=== PATIENT | male | born 1965 | race Caucasian/White ===

== ENCOUNTER 2023-03-07 08:12 | Outpatient (CLI) | payer OTHER, SELFPAY | END 2023-03-07 08:13 | disposition home or self-care (01) | PROVIDERS: PCP Family Medicine; Visit Provider Family Medicine | DX: E78.5 Hyperlipidemia, unspecified (principal); E55.9 Vitamin D deficiency, unspecified; E66.9 Obesity, unspecified; Z12.5 Encounter for screening for malignant neoplasm of prostate | CPT/HCPCS: 80061; 84153 ==

== ENCOUNTER 2024-08-08 10:01 | Outpatient (CLI) | payer OTHER, SELFPAY ==
--- OUTSIDE RECORDS SUMMARY | 2024-08-08 10:05 | XMS_ITS | Clinical Summary ---
Author Organization [facility] Address [address] [address] Phone Care Team Providers Care Soil Science Technical Officer Name Role Phone Unavailable Primary Care Provider Unavailabl e Allergies No known active allergies Medications Medication Sig Dispensed Refills Start Date End Date Status atorvaSTATin (Lipitor) 10 MG tablet Take 10 mg by mouth one time a day. Active FENOFIBRATE OR Take by mouth. Active ASPIRIN 81 OR Take by mouth. Active Immunizations Name Administration Dates Next Due Rabies IM Fibroblast Culture (Rabavert) 04/18/20 23,04/15/2023 Social History Tobacco Use Types Packs/Day Years Used Date Smoking Tobacco: Never Assessed [facility] Custom IPV Answer Date Recorded Do you feel UNSAFE in any of your personal relationships with your family members or any other acquaintances? No 2022 Sex and Gender Information Value Date Recorded Sex Assigned at Not on file Gender Identity Not on file Sexual Orientation Not on file Job Start Date Occupation Industry Not on file Not on file Not on file Last Filed Vital Signs Vital Sign Reading Time Taken Comments Blood Pressure 157/97 04/18/2023 9:46 AM CDT Pulse 74 04/18/2023 9:42 AM CDT Temperature 36.9 ??C (98.4 ??F) 04/18/2023 9:42 AM CD T Respiratory Rate 18 04/18/2023 9:42 AM CDT Oxygen Saturation 98% 04/18/2023 9:42 AM CDT Inhaled Oxygen Concentration - - Weight 90.7 kg (200 lb) 04/18/2023 9:42 AM CDT Height 180.3 cm (5' 11) 04/18/2023 9:42 AM CDT Body Mass Index 27.89 04/18/2023 9:42 AM CDT Plan of Treatment Not on file Aram Mojica Personal/Family Self 1965 [address] [place] [address]
== END 2024-08-08 10:02 | disposition home or self-care (01) ==
PROVIDERS: PCP Family Medicine; Visit Provider Family Medicine
DX: E78.5 Hyperlipidemia, unspecified (principal); E55.9 Vitamin D deficiency, unspecified; Z12.5 Encounter for screening for malignant neoplasm of prostate
CPT/HCPCS: 80048; 80061; G0103

== ENCOUNTER 2025-02-12 15:33 | Outpatient (CLI) | payer OTHER, SELFPAY | END 2025-02-12 15:34 | disposition home or self-care (01) | LOC: NFLDREF 02-13 17:09 | PROVIDERS: PCP Family Medicine; Referring Provider Family Medicine; Visit Provider Family Medicine | DX: R10.32 Left lower quadrant pain (principal); K57.92 Diverticulitis of intestine, part unspecified, without perforation or abscess without bleeding | CPT/HCPCS: 87086 ==

== ENCOUNTER 2025-06-06 09:29 | Outpatient (CLI) | payer OTHER, SELFPAY ==
--- NOTE | 2025-06-06 11:07 | P.ANES_ITS ---
Anesthesia Charges Start Date/Time Anesthesia Start Date: 06/06/25 Anesthesia Start Time: 10:35 Stop Date/Time Anesthesia Stop Date: 06/06/25 Anesthesia Stop Time: 11:01 Coding CPT Codes CPT Codes: JESICA LWR INTST NDSC NOS - [id number] ([id number]) P2 - PATIENT W/MILD SYST DISEASE, QK - NCR OPERATOR 2-4 CNCRNT ANES PROC, QX - INFORMATION TECHNOLOGY ARCHITECT SVC W/ MD MED DIRECTION
--- NOTE | 2025-06-06 11:07 | W.ANESCHARGE ---
Anesthesia Charges Start Date/Time Anesthesia Start Date: 06/06/25 Anesthesia Start Time: 10:35 Stop Date/Time Anesthesia Stop Date: 06/06/25 Anesthesia Stop Time: 11:01 Coding CPT Codes CPT Codes: JESICA LWR INTST NDSC NOS - [id number] ([id number]) P2 - PATIENT W/MILD SYST DISEASE, QK - AXMINSTER WEAVER 2-4 CNCRNT ANES PROC, QX - GEOLOGICAL SURVEY FIELD ASSISTANT SVC W/ MD MED DIRECTION
--- NOTE | 2025-06-06 11:08 | P.ANES_ITS ---
Anesthesia Charges Start Date/Time Anesthesia Start Date: 06/06/25 Anesthesia Start Time: 10:35 Stop Date/Time Anesthesia Stop Date: 06/06/25 Anesthesia Stop Time: 11:01 Coding CPT Codes CPT Codes: JESICA HERRON INTST NDSC NOS - [id number] ([id number]) P2 - PATIENT W/MILD SYST DISEASE, QX - SUPERVISOR WASH HOUSE SVC W/ MD MED DIRECTION, QK - MANUFACTURING TEST ENGINEER 2-4 CNCRNT JESICA PROC
--- NOTE | 2025-06-06 11:08 | W.ANESCHARGE ---
Anesthesia Charges Start Date/Time Anesthesia Start Date: 06/06/25 Anesthesia Start Time: 10:35 Stop Date/Time Anesthesia Stop Date: 06/06/25 Anesthesia Stop Time: 11:01 Coding CPT Codes CPT Codes: JESICA HERRON INTST NDSC NOS - [id number] ([id number]) P2 - PATIENT W/MILD SYST DISEASE, QX - HAND POLISHER SVC W/ MD MED DIRECTION, QK - CW OPERATOR 2-4 CNCRNT JESICA PROC
== END 2025-06-06 09:30 | disposition home or self-care (01) ==
LOC: OP CLINIC 09:30
PROVIDERS: PCP Family Medicine; Visit Provider Surgery
DX: Z12.11 Encounter for screening for malignant neoplasm of colon (principal); Z86.0100 Personal history of colon polyps, unspecified; D12.3 Benign neoplasm of transverse colon
CPT/HCPCS: 00811; 00812; 45385; 88305; J2704